=== PATIENT | female | born 1935 | race Caucasian/White ===

== ENCOUNTER 2017-06-17 08:57 | Emergency (ER) | payer MEDICARE, BC ==
[~2017-06-17] VITALS: Ht 154.9 cm; Wt 93.0 kg
[~2017-06-17 08:57] MED LIST: ACTOS15 MG PO; ASPIRIN EC81 MG PO; ASPIRIN LOW81 M1 PO; BUMETANIDE1 MG PO; CARVEDILOL3.125 MG PO; CEPHALEXIN500 MG PO; COUMADIN4 MG PO; DIOVAN80 MG PO; GLIPIZIDE XL10 MG PO; GLIPIZIDE10 MG PO; IPRATROPIU0.5 MG/3 M IN; JANUVIA50 MG PO; LANTUS100 MG/ML SC; LIPITOR80 MG PO; METOPROL TAR25 MG PO; METOPROL TAR50 MG PO; NORVASC2.5 MG PO; NORVASC5 MG PO; NYSTATIN100000 M4 EX; OXYBUTYNIN5 M1 PO; PROTONIX20 M1 PO; TORSEMIDE20 M1 PO; VYTORIN 10/201 TAB PO
[2017-06-17] MEDS ORDERED: MOTRIN400 MG PO (10:23)
[2017-06-17 10:32] VITALS: BP 154/49
== END 2017-06-17 10:44 | disposition home or self-care (01) ==
LOC: ED 08:57
DX: S93.401A Sprain of unspecified ligament of right ankle, initial encounter (principal); E11.9 Type 2 diabetes mellitus without complications; I10 Essential (primary) hypertension; I25.10 Atherosclerotic heart disease of native coronary artery without angina pectoris; W01.0XXA Fall on same level from slipping, tripping and stumbling without subsequent striking against object, initial encounter; Y92.009 Unspecified place in unspecified non-institutional (private) residence as the place of occurrence of the external cause; Z90.49 Acquired absence of other specified parts of digestive tract; Z85.3 Personal history of malignant neoplasm of breast